=== PATIENT | female | born 1965 | race Caucasian/White ===

== ENCOUNTER 2017-07-22 19:26 | Emergency (ER) | payer OTHER ==
[~2017-07-22] VITALS: Ht 160 cm; Wt 103.4 kg
[2017-07-22 19:35] VITALS: BP_SYST 153
[2017-07-22 20:06] LABS: BILIRUBIN,URINE NEGATIVE (NEGATIVE); CLARITY/URINE SL HAZY (CLEAR); COLOR,URINE YELLOW (YELLOW); GLUCOSE,URINE NEGATIVE (NEGATIVE); KETONES,URINE NEGATIVE (NEGATIVE); LEUKOCYTE ESTERASE ,URINE 3+ (NEGATIVE); NITRITE, URINE NEGATIVE (NEGATIVE); PROTEIN URINE NEGATIVE (NEGATIVE); UROBILINOGEN,URINE 0.2 (0.2-1.0)
[2017-07-22 20:10] LABS: BLOOD, URINE TRACE (NEGATIVE)
[2017-07-22 20:12] LABS: BACTERIA,URINE FEW /HPF (None Seen); WBC,URINE 20-50 /HPF (0-3)
[2017-07-22 21:00] LABS: EOSINOPHILS # (AUTO) 0.2 K/uL (0.0-0.4); HEMATOCRIT 41.7 % (36-48); HEMOGLOBIN 13.6 g/dL (12.0-16.0); LYMPHOCYTES # (AUTO) 2.9 K/uL (1.0-5.5); LYMPHOCYTES % (AUTO) 25.8 % (20.5-51.5); MEAN CORPUSCULAR HEMOGLOBIN 27 pg (27-31); MEAN CORPUSCULAR HGB CONC 33 % (32-36); MEAN CORPUSCULAR VOLUME 82 fL (79.0-98.0); MONOCYTES # (AUTO) 0.7 K/uL (0.0-1.0); MONOCYTES % (AUTO) 6.1 % (1.7-9.3); PLATELET COUNT (AUTO) 234 K/uL (130-430); RED BLOOD CELL COUNT(AUTO) 5.09 MIL/uL (4.2-6.2); RED CELL DISTRIBUTION WIDTH 13.7 % (9.0-15.0); WHITE BLOOD COUNT (AUTO) 11.2 K/uL (4.8-10.8)
[2017-07-22 21:03] LABS: BASOPHILS % (AUTO) 0.3 % (0.0-2.0); NEUTROPHILS # (AUTO) 7.4 K/uL (1.8-7.7); NEUTROPHILS % (AUTO) 65.8 % (40.0-70.0)
[2017-07-22 21:06] LABS: CALCIUM 9.4 mg/dL (8.4-11.0); CREATININE 0.81 mg/dL (0.55-1.30)
[2017-07-22 21:12] LABS: ALBUMIN 3.3 g/dL (3.4-4.8); TOTAL BILIRUBIN 0.3 mg/dL (0.0-1.0)
[2017-07-22 21:50] VITALS: BP_SYST 153
== END 2017-07-22 21:50 | disposition home or self-care (01) ==
LOC: SED 19:26
DX: N39.0 Urinary tract infection, site not specified (principal); R03.0 Elevated blood-pressure reading, without diagnosis of hypertension; Z88.6 Allergy status to analgesic agent; Z88.5 Allergy status to narcotic agent; Z88.0 Allergy status to penicillin; Z88.7 Allergy status to serum and vaccine
CPT/HCPCS: 36415; 80053; 81000-TC; 85025; 87086; 87186-TC; 99284

== ENCOUNTER 2017-08-24 16:21 | Emergency (ER) | payer OTHER ==
[~2017-08-24] VITALS: Ht 165.1 cm; Wt 106.6 kg
[2017-08-24 16:33] VITALS: BP_SYST 133
[2017-08-24 17:22] VITALS: BP_SYST 128
== END 2017-08-24 17:22 | disposition home or self-care (01) ==
LOC: SED 16:21
DX: J30.9 Allergic rhinitis, unspecified (principal); Z88.0 Allergy status to penicillin; Z88.5 Allergy status to narcotic agent; Z88.6 Allergy status to analgesic agent
CPT/HCPCS: 99283

== ENCOUNTER 2017-10-07 17:14 | Emergency (ER) | payer OTHER ==
[~2017-10-07] VITALS: Ht 165.1 cm; Wt 105.7 kg
[2017-10-07 17:24] VITALS: BP_SYST 136
--- NOTE | 2017-10-07 17:28 | NUR ---
Ambulatory to bed 3
--- NOTE | 2017-10-07 18:05 | NUR ---
ER DRISS FONSECA at bedside examining patient.
--- NOTE | 2017-10-07 18:06 | NUR ---
PT AAOX4, ABLE TO VERBALIZE NEEDS. PT C/O 8/10 BURNING BACK PAIN THAT BEGAN THIS MORNING. PT STATES NORMALLY WHEN SHE HAS BACK PAIN SHE TAKES ADVIL AND HAS PAIN RELIEF BUT MEDICATION DID NOT HELP TODAY. PT ALSO C/O SLIGHT NAUSEA AND DIZZINESS. PT DENIES CHEST PAIN, SOB, VOMITING, DIARRHEA.
--- NOTE | 2017-10-07 19:05 | NUR ---
Recieved report from Chapis LEWIS. Will assume care at this time.
[2017-10-07 19:09] LABS: EOSINOPHILS # (AUTO) 0.1 K/uL (0.0-0.4); EOSINOPHILS % (AUTO) 1.2 % (0.0-4.0); HEMATOCRIT 43.4 % (36-48); HEMOGLOBIN 14.4 g/dL (12.0-16.0); LYMPHOCYTES # (AUTO) 2.1 K/uL (1.0-5.5); LYMPHOCYTES % (AUTO) 19.7 % (20.5-51.5); MEAN CORPUSCULAR HEMOGLOBIN 27 pg (27-31); MEAN CORPUSCULAR HGB CONC 33 % (32-36); MEAN CORPUSCULAR VOLUME 82 fL (79.0-98.0); MONOCYTES # (AUTO) 0.7 K/uL (0.0-1.0); MONOCYTES % (AUTO) 7.1 % (1.7-9.3); PLATELET COUNT (AUTO) 260 K/uL (130-430); RED BLOOD CELL COUNT(AUTO) 5.27 MIL/uL (4.2-6.2); RED CELL DISTRIBUTION WIDTH 14.4 % (9.0-15.0); WHITE BLOOD COUNT (AUTO) 10.5 K/uL (4.8-10.8)
[2017-10-07 19:22] LABS: NEUTROPHILS # (AUTO) 7.6 K/uL (1.8-7.7)
[2017-10-07 19:23] LABS: CALCIUM 9.6 mg/dL (8.4-11.0); CREATININE 0.79 mg/dL (0.55-1.30); POTASSIUM 4.2 mmol/L (3.5-5.1)
[2017-10-07 19:25] LABS: INR 0.9 (0.8-1.2); PROTHROMBIN TIME 9.3 SECS (9.5-12.5)
[2017-10-07 19:29] LABS: ALBUMIN 3.5 g/dL (3.4-4.8); TOTAL BILIRUBIN 0.3 mg/dL (0.0-1.0)
[2017-10-07] MEDS ORDERED: MEPERIDINE HCL/PF 100 MG/ML AMP IM ONE (20:30)
[2017-10-07] MEDS ORDERED: ONDANSETRON 4 MG ODT TAB PO ONE (20:30)
[2017-10-07] MEDS ORDERED: ONDANSETRON HCL 4 MG/2 ML VIAL IVP ONE (20:45)
[2017-10-07] MEDS ORDERED: MEPERIDINE HCL/PF 100 MG/ML AMP IV ONE (20:45)
--- NOTE | 2017-10-07 21:13 | NUR ---
Patient reports pain 3/10 30 minutes after administration of 100mg demerol. No adverse reactions noted. Will continue to monitor.
--- NOTE | 2017-10-07 22:00 | NUR ---
Patient informed she is not allowed to drive due to medications recieved while in ED. Patient aware of situation. Awaiting ride for her at this time.
--- NOTE | 2017-10-07 23:37 | NUR ---
Patient resting quietly. Verbalizes no needs at this time. Reports pain of 3/10. Respirations even and unlabored. Will continue to monitor.
--- NOTE | 2017-10-08 00:11 | NUR ---
ED MD Whitesideek at bedside reassessing patient.
[2017-10-08 00:30] VITALS: BP_SYST 129
--- NOTE | 2017-10-08 00:30 | NUR ---
Patient given written and verbal discharge instructions and verbalizes understanding. ER MD discussed with patient the results and treatment provided. Patient in stable condition. ID arm band removed. IV catheter removed intact and dressing applied, no active bleeding. Rx of ibuprofen given. Patient educated on pain management and to follow up with PMD. Pain Scale 2/10 tolerable for patient. Opportunity for questions provided and answered. Medication side effect fact sheet provided.
== END 2017-10-08 00:30 | disposition home or self-care (01) ==
LOC: SED 17:14
DX: M79.7 Fibromyalgia (principal); Z88.6 Allergy status to analgesic agent; Z88.5 Allergy status to narcotic agent; Z88.0 Allergy status to penicillin; Z90.710 Acquired absence of both cervix and uterus; R79.1 Abnormal coagulation profile
CPT/HCPCS: 36415; 72072; 80053; 82550; 83880; 84484; 85025; 85610; 85730; 93005; 96374; 96375; 99285; J2175; J2405

== ENCOUNTER 2017-12-15 16:22 | Emergency (ER) | payer OTHER ==
[~2017-12-15] VITALS: Ht 165.1 cm; Wt 103.4 kg
[2017-12-15 16:22] VITALS: BP_SYST 123
[2017-12-15] MEDS ORDERED: ONDANSETRON 4 MG ODT TAB PO ONE (16:45)
[2017-12-15] MEDS ORDERED: MORPHINE 2 MG/ML INJ. SYRINGE IM ONE ×2 (16:45→18:00)
[2017-12-15 18:30] LABS: BILIRUBIN,URINE NEGATIVE (NEGATIVE); BLOOD, URINE NEGATIVE (NEGATIVE); CLARITY/URINE CLEAR (CLEAR); COLOR,URINE YELLOW (YELLOW); GLUCOSE,URINE NEGATIVE (NEGATIVE); KETONES,URINE NEGATIVE (NEGATIVE); LEUKOCYTE ESTERASE ,URINE NEGATIVE (NEGATIVE); NITRITE, URINE NEGATIVE (NEGATIVE); PROTEIN URINE NEGATIVE (NEGATIVE); UROBILINOGEN,URINE 0.2 (0.2-1.0)
[2017-12-15 19:11] VITALS: BP_SYST 126
== END 2017-12-15 19:11 | disposition home or self-care (01) ==
LOC: SED 16:22
DX: G89.29 Other chronic pain (principal); M54.5 Low back pain; M79.7 Fibromyalgia; Z88.6 Allergy status to analgesic agent; Z88.5 Allergy status to narcotic agent; Z88.0 Allergy status to penicillin; Z88.7 Allergy status to serum and vaccine
CPT/HCPCS: 81003; 96372; 99284; J2270; Q0162

== ENCOUNTER 2018-01-20 21:28 | Emergency (ER) | payer OTHER ==
[~2018-01-20] VITALS: Ht 165.1 cm; Wt 102.1 kg
[2018-01-20 21:50] VITALS: BP_SYST 146
[2018-01-20 22:43] LABS: BILIRUBIN,URINE NEGATIVE (NEGATIVE); BLOOD, URINE NEGATIVE (NEGATIVE); CLARITY/URINE CLEAR (CLEAR); COLOR,URINE YELLOW (YELLOW); GLUCOSE,URINE NEGATIVE (NEGATIVE); KETONES,URINE NEGATIVE (NEGATIVE); LEUKOCYTE ESTERASE ,URINE NEGATIVE (NEGATIVE); NITRITE, URINE NEGATIVE (NEGATIVE); PROTEIN URINE NEGATIVE (NEGATIVE); UROBILINOGEN,URINE 0.2 (0.2-1.0)
[2018-01-20] MEDS ORDERED: MORPHINE 4 MG/ML INJ. SYRINGE IVP ONE (23:15)
[2018-01-20 23:47] LABS: BASOPHILS % (AUTO) 0.6 % (0.0-2.0); EOSINOPHILS # (AUTO) 0.1 K/uL (0.0-0.4); EOSINOPHILS % (AUTO) 1.9 % (0.0-4.0); HEMATOCRIT 42.6 % (36-48); HEMOGLOBIN 13.7 g/dL (12.0-16.0); LYMPHOCYTES % (AUTO) 25.2 % (20.5-51.5); MEAN CORPUSCULAR HEMOGLOBIN 27 pg (27-31); MEAN CORPUSCULAR HGB CONC 32 % (32-36); MEAN CORPUSCULAR VOLUME 84 fL (79.0-98.0); MONOCYTES # (AUTO) 0.6 K/uL (0.0-1.0); MONOCYTES % (AUTO) 8.1 % (1.7-9.3); NEUTROPHILS # (AUTO) 5.1 K/uL (1.8-7.7); NEUTROPHILS % (AUTO) 64.2 % (40.0-70.0); PLATELET COUNT (AUTO) 236 K/uL (130-430); RED BLOOD CELL COUNT(AUTO) 5.07 MIL/uL (4.2-6.2); RED CELL DISTRIBUTION WIDTH 13.4 % (9.0-15.0); WHITE BLOOD COUNT (AUTO) 7.8 K/uL (4.8-10.8)
[2018-01-21 00:05] LABS: CALCIUM 9.4 mg/dL (8.4-11.0); CREATININE 0.72 mg/dL (0.55-1.30); POTASSIUM 3.7 mmol/L (3.5-5.1)
[2018-01-21 00:11] LABS: ALBUMIN 3.6 g/dL (3.4-4.8); TOTAL BILIRUBIN 0.3 mg/dL (0.0-1.0)
[2018-01-21] MEDS ORDERED: KETOROLAC TROMETHAMINE 30 MG VIAL IVP ONE (01:30)
[2018-01-21] MEDS ORDERED: ONDANSETRON HCL 4 MG/2 ML VIAL IVP ONE (01:30)
[2018-01-21 02:00] VITALS: BP_SYST 131
== END 2018-01-21 02:00 | disposition home or self-care (01) ==
LOC: SED 21:28
DX: M25.511 Pain in right shoulder (principal); M25.512 Pain in left shoulder; M25.522 Pain in left elbow; M25.521 Pain in right elbow; M25.532 Pain in left wrist; M25.531 Pain in right wrist; M79.652 Pain in left thigh; M79.651 Pain in right thigh; M25.552 Pain in left hip; M25.551 Pain in right hip; G89.29 Other chronic pain; M79.7 Fibromyalgia; I10 Essential (primary) hypertension; Z88.6 Allergy status to analgesic agent; Z88.5 Allergy status to narcotic agent; Z88.0 Allergy status to penicillin; Z88.7 Allergy status to serum and vaccine
CPT/HCPCS: 36415; 80053; 81003; 81025; 85025; 96374; 96375; 96376; 99284; J1885; J2270; J2405

== ENCOUNTER 2018-03-14 11:05 | Emergency (ER) | payer OTHER ==
[~2018-03-14] VITALS: Ht 165.1 cm; Wt 95.7 kg
[2018-03-14 11:15] VITALS: BP_SYST 132
--- NOTE | 2018-03-14 11:25 | NUR ---
ER Dr. Luis examining patient in triage room.
--- NOTE | 2018-03-14 11:32 | NUR ---
Patient reports that she is continuing to have severe pain and is crying. States that she is upset because she has been to several ERs and none of them will give her a morphine shot. States that her primary care doctor also refused to give her anything stronger than Motrin as did her pain management doctor. Patient states that if the doctor is not going to give her any morphine she is going to leave. Patient left without waiting for discharge paperwork.
== END 2018-03-14 11:30 | disposition home or self-care (01) ==
LOC: SED 11:05
DX: M54.6 Pain in thoracic spine (principal); R11.0 Nausea
CPT/HCPCS: 99281

== ENCOUNTER 2021-04-29 16:05 | Emergency (ER) | payer OTHER, SELFPAY ==
[~2021-04-29] VITALS: Ht 165.1 cm; Wt 96.6 kg
[2021-04-29 16:09] VITALS: BP_SYST 106
--- NOTE | 2021-04-29 16:17 | NUR ---
Patient to ER bed 07 to gown for evaluation. Side rails up.
--- NOTE | 2021-04-29 16:18 | NUR ---
Pt brought by self, A&Ox4, ambulatory, pt presents to ER with R shoulder/arm pain , pt describes like burning sensation, denies chest pain, skin pink and warm, cap refill <3, VSS.
[2021-04-29] MEDS ORDERED: DICL20GE TP (16:19)
--- NOTE | 2021-04-29 16:20 | NUR ---
Dr Hermosillo evaluating patient at bedside
[2021-04-29] MEDS ORDERED: KETOROLAC TROMETHAMINE 60 MG/2 ML VIAL IM ONE (16:30)
[2021-04-29 16:41] VITALS: BP_SYST 106
--- NOTE | 2021-04-29 16:43 | NUR ---
Patient given written and verbal discharge instructions and verbalizes understanding. ER MD discussed with patient the results and treatment provided. Patient in stable condition. ID arm band removed. Rx of Voltaren given. Patient educated on pain management and to follow up with PMD. Pain Scale 2/10 . Opportunity for questions provided and answered. Medication side effect fact sheet provided.
== END 2021-04-29 16:41 | disposition home or self-care (01) ==
LOC: SED 16:05
DX: S46.011A Strain of muscle(s) and tendon(s) of the rotator cuff of right shoulder, initial encounter (principal); I10 Essential (primary) hypertension; E11.9 Type 2 diabetes mellitus without complications; Z88.0 Allergy status to penicillin; Z88.1 Allergy status to other antibiotic agents; Z88.8 Allergy status to other drugs, medicaments and biological substances; X58.XXXA Exposure to other specified factors, initial encounter; Y93.9 Activity, unspecified; Y92.9 Unspecified place or not applicable; Y99.9 Unspecified external cause status
CPT/HCPCS: 96372; 99283; J1885